=== PATIENT | female | born 1965 | race Caucasian/White ===

== ENCOUNTER 2018-05-01 02:23 | Inpatient (IN) | payer BC ==
[2018-05-01] VITALS (7 sets, daily range): BP systolic 120–160; BP diastolic 62–99
[~2018-05-01] VITALS: Ht 162.6 cm; Wt 114.8 kg
--- NOTE | ~2018-05-01 | HC ---
[facility] [place] [address] CONSULTATION Name: HA JEFF Robinson Room #: 358-P [facility]#: [id number] Admission: 05/01/18 Attend Phys: Edvin Steward MD Discharge: 05/03/18 Date of : 67 Report #: [id number] THIS REPORT FOR: //name// CC: Edvin Shi DATE OF SERVICE: 05/03/2018 REQUESTING PHYSICIAN: Radha Shi MD CHIEF COMPLAINT: Abdominal wall wounds. HISTORY OF PRESENT ILLNESS: This is a 52-year-old white female with a history of gastric bypass 2 months ago, who unfortunately developed a seroma postoperatively, which required an I and D. The patient states that she initially was treated with wound VAC therapy, which has been discharged. The patient is now having home health come out and do her dressing changes. The patient is currently admitted for urinary tract infection that failed outpatient therapy. We were asked to give guidance on her wound care while she was here in the hospital. The patient currently receives her wound care at [facility]. The patient denies any pain or problems associated with the wounds. The patient denies any other associated wounds, which she could not heal on her own. 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 CURRENT MEDICATIONS: Multiple, I reviewed the patient's medication list. DRUG ALLERGIES: None. SOCIAL HISTORY: The patient does not smoke or drink alcohol. FAMILY HISTORY: Not pertinent to current medical condition. REVIEW OF SYSTEMS: CONSTITUTIONAL: The patient denies fevers, but had chills at home. NEUROLOGIC: The patient denies numbness, tingling, weakness in arms or legs, but does complain of overall generalized fatigue. EYES: No complaints. ENT: No complaints. CARDIAC: The patient denies chest pain, palpitations or peripheral edema. RESPIRATORY: The patient denies shortness of breath, cough or wheezes. [facility] [address] [place] [address] CONSULTATION Name: AH JEFF Room #: 358-P [facility]#: [id number] Admission: 05/01/18 Attend Phys: Edvin Stewadr MD Discharge: 05/03/18 Date of : 67 Report #: [id number] GASTROINTESTINAL: The patient had mild nausea associated with the urinary tract infection and decreased appetite, but no diarrhea. The patient complains of constipation; however, this turned into diarrhea after she took MiraLax. MUSCULOSKELETAL: No complaints. SKIN: The patient has two open surgical wounds in the abdominal wall, which are draining. PHYSICAL EXAMINATION: VITAL SIGNS: Temperature 37.1, pulse 79, respiratory rate 18, BP 162/92. GENERAL: This is an alert and oriented x 3 obese white female who is in no acute distress. HEENT: Normocephalic, atraumatic. Mucous membranes are moist. Pupils are round. Sclerae are white. NECK: Supple and nontender. BACK: Nontender. LUNGS: Clear. HEART: Regular, without murmur. ABDOMEN: Obese, soft, nontender. There are two surgical wounds. Please see the nurse's notes for measurements. The right midline wound has some seropurulent drainage; however, there is no significant tunneling, tracking or undermining. Wound base itself after cleansing is nearly 100% granulated tissue. There are no signs of any infected mesh or deeper structures. Periwound is otherwise intact without erythema, warmth or cellulitis. Just to the left of the midline is another wound, which is clean and granulating. Please see nurse's notes for measurements. There is once again no significant tunneling, tracking or undermining. There is minimal drainage in this wound itself. Underlying tissue is 100% granulated tissue. Periwound is intact without erythema, warmth or signs of cellulitis. EXTREMITIES: The patient moves all extremities without difficulty. NEUROLOGIC: Cranial nerves 2-12 grossly intact. Motor and sensory grossly intact. LABORATORY DATA: White count 5.2, hemoglobin 11.0. BUN 8, creatinine 1.0. Glucose is 99. Albumin low at 2.3. IMPRESSION: 1. Surgical wounds, abdominal wall secondary to incision and drainage of seroma. 2. Status post gastric bypass with development of seroma. 3. Diabetes mellitus type 2. 4. Protein-calorie malnutrition -- severe with albumin 2.3. 5. Urinary tract infection, which failed outpatient therapy. 6. Generalized debility. PLAN: At this time, we will pack the wounds with silver alginate while she is here in the hospital. We will cover this with an ABD. This will be changed [facility] [address] [facility] [place] [address] CONSULTATION Name: HA JEFF Room #: 358-P [facility]#: [id number] Admission: 05/01/18 Attend Phys: Edvin Steward MD Discharge: 05/03/18 Date of : 67 Report #: [id number] once daily. The patient will resume her own wound care procedures upon discharge with her wound care physician at [facility]. I have encouraged her to increase her protein in her diet for maximized healing as well as to make sure she maintains adequate glycemic control for healing as well. I appreciate the ability to consult. I will continue to follow her while she is in the hospital. <ELECTRONICALLY SIGNED> By: Robert Moya MD 05/05/18 [id number] Robert Moya MD /nt
[~2018-05-01 02:23] MED LIST: ACTOS 45 MG45 M1 PO; DIABETA 2.5MG2.5 MG PO; FENOFIBRATE67 MG PO; GLUMETZA1000; LEVOTHYROXINE0.2 M1 PO; LISINOPRIL20 MG PO; PAXIL30 MG PO; PRILOSEC40 MG PO
[2018-05-01 03:30] LABS: URINE BILIRUBIN 2+ (Negative); URINE BLOOD TRACE (Negative); URINE COLOR ORANGE; URINE GLUCOSE-RANDOM* 1+ (Negative); URINE KETONES 2+ (Negative); URINE PROTEIN (DIPSTICK) 3+ (Negative); URINE SPECIFIC GRAVITY 1.025 (1.005-1.035); URINE UROBILINOGEN >= 8.0 E.U./dl (0.2-1.0)
[2018-05-01 03:33] LABS: HEMOGLOBIN 12.3 gm/dL (12.0-15.0); MCH 26.6 pg (26.0-34.0); MCHC 32.4 g/dL (28.0-37.0); MCV 81.9 fL (80.0-100.0); RBC 4.64 mil/uL (4.20-5.00); RDW 19.3 % (10.5-14.5); WBC 7.6 thou/uL (4.0-11.0)
[2018-05-01 03:38] LABS: URINE CLARITY CLOUDY; URINE LEUKOCYTES-REFLEX 1+ (Negative); URINE NITRITE-REFLEX POSITIVE (Negative)
[2018-05-01 03:39] LABS: ICTOTEST (BILI CONFIRMATORY) Positive (Negative)
[2018-05-01 03:41] LABS: CALCIUM 9.1 mg/dL (8.5-10.1); CREATININE 1.4 mg/dL (0.6-1.0)
[2018-05-01 03:47] LABS: SQUAMOUS >10 Many /LPF (0-3)
[2018-05-01 03:47] LABS: ALBUMIN 2.3 g/dL (3.4-5.0); DIRECT BILIRUBIN 0.1 mg/dL (<0.1-0.3); MAGNESIUM 1.1 mg/dL (1.8-2.4); TOTAL BILIRUBIN 0.4 mg/dL (<0.1-1.0); TOTAL PROTEIN 6.9 g/dL (6.4-8.2)
[2018-05-01 03:49] LABS: CASTS None Seen /LPF (None Seen); CRYSTALS None Seen /LPF (None Seen); HYALINE CASTS 4-10 Moderate /LPF (None Seen); URINE RBC 0-2 Rare /HPF (0-2)
[2018-05-01 03:51] LABS: POTASSIUM 2.5 mmol/L (3.5-5.1)
[2018-05-01] MEDS ORDERED: ZOFRAN ODT4 MG BUCCAL (07:51)
[2018-05-01] MEDS ORDERED: CARAFATE 1 GM TA1 G1 PO (07:52)
[2018-05-01] MEDS ORDERED: ATIVAN0.5 MG PO (07:53)
[2018-05-01] MEDS ORDERED: PHENAZOPYRIDIN200 M2 PO (07:54)
[2018-05-01 12:31] LABS: MAGNESIUM 2.1 mg/dL (1.8-2.4); POTASSIUM 3.1 mmol/L (3.5-5.1)
[2018-05-02 00:17] VITALS: BP 136/74
[2018-05-02 03:26] VITALS: BP 194/94
[2018-05-02 05:21] LABS: CALCIUM 8.5 mg/dL (8.5-10.1); CREATININE 1.1 mg/dL (0.6-1.0)
[2018-05-02 05:30] LABS: POTASSIUM 2.8 mmol/L (3.5-5.1)
[2018-05-02 07:45] VITALS: BP 172/79
[2018-05-02 15:46] VITALS: BP 173/89
[2018-05-02 19:29] VITALS: BP 194/113
[2018-05-03 04:17] LABS: HEMATOCRIT 33.8 % (37.0-47.0); MCH 27.3 pg (26.0-34.0); MCHC 32.7 g/dL (28.0-37.0); MCV 83.4 fL (80.0-100.0); RBC 4.05 mil/uL (4.20-5.00); RDW 20.2 % (10.5-14.5); WBC 5.2 thou/uL (4.0-11.0)
[2018-05-03 04:31] LABS: CALCIUM 8.2 mg/dL (8.5-10.1); POTASSIUM 3.3 mmol/L (3.5-5.1)
[2018-05-03 07:58] VITALS: BP 162/92
[2018-05-03] MEDS ORDERED: KEFLEX500 M1 PO (15:32)
[2018-05-03 15:35] VITALS: BP 162/92
== END 2018-05-03 16:11 | disposition home or self-care (01) | DRG 682 ==
LOC: ER 02:23 → 3W 04:26 → EROBS 04:26 → 3W 05:58 → ENTRNSPT 05-03 15:52 → 3W 05-03 16:11
PROVIDERS: Emergency Medicine; Hospitalist; Nurse Practitioner Family
DX: N17.9 Acute kidney failure, unspecified (principal); E43 Unspecified severe protein-calorie malnutrition; N39.0 Urinary tract infection, site not specified; Z68.41 Body mass index [BMI] 40.0-44.9, adult; L76.34 Postprocedural seroma of skin and subcutaneous tissue following other procedure; F32.9 Major depressive disorder, single episode, unspecified; I10 Essential (primary) hypertension; K21.9 Gastro-esophageal reflux disease without esophagitis; E11.9 Type 2 diabetes mellitus without complications; E86.0 Dehydration; E87.6 Hypokalemia; R82.4 Acetonuria; E66.01 Morbid (severe) obesity due to excess calories; E03.9 Hypothyroidism, unspecified; F41.9 Anxiety disorder, unspecified; E83.42 Hypomagnesemia; Y83.8 Other surgical procedures as the cause of abnormal reaction of the patient, or of later complication, without mention of misadventure at the time of the procedure; Z90.49 Acquired absence of other specified parts of digestive tract; Z98.84 Bariatric surgery status; Y92.89 Other specified places as the place of occurrence of the external cause
CPT/HCPCS: 10080; 10779

== ENCOUNTER 2018-07-08 19:58 | Emergency (ER) | payer BC, OTHER ==
[~2018-07-08] VITALS: Ht 162.6 cm; Wt 110.7 kg
[~2018-07-08 19:58] MED LIST changes: +ATIVAN0.5 MG PO; +CARAFATE 1 GM TA1 G1 PO; +KEFLEX500 M1 PO; +PHENAZOPYRIDIN200 M2 PO; +ZOFRAN ODT4 MG BUCCAL
[2018-07-08 21:25] VITALS: BP 186/79
== END 2018-07-08 21:25 | disposition home or self-care (01) ==
LOC: ER 19:58
DX: S01.01XA Laceration without foreign body of scalp, initial encounter (principal); I10 Essential (primary) hypertension; K21.9 Gastro-esophageal reflux disease without esophagitis; F32.9 Major depressive disorder, single episode, unspecified; E11.9 Type 2 diabetes mellitus without complications; Z90.49 Acquired absence of other specified parts of digestive tract; Z98.84 Bariatric surgery status; W10.9XXA Fall (on) (from) unspecified stairs and steps, initial encounter; Y93.89 Activity, other specified; Y92.89 Other specified places as the place of occurrence of the external cause; Y99.8 Other external cause status